=== PATIENT | female | born 1970 | race Caucasian/White ===

== ENCOUNTER 2017-04-24 05:18 | Observation (INO) | payer BC ==
[2017-04-18 09:17] VITALS: BMI 33.0
--- NOTE | 2017-04-18 09:50 | PAT Medication Instructions ---
Service Date Apr 18, 2017. Current Home Medication List Erythromycin (Erythromycin), 1 TAB PO BID Gabapentin (Neurontin), 600 MG PO HS Lisinopril (Zestril), 5 MG PO QAM Meloxicam (Mobic), 15 MG PO NOON Methotrexate (Methotrexate), 4 TAB PO WEEKLY Mupirocin 2% (Bactroban 2%), 1 APPLN EXT QAM Thyroid ([place] Thyroid), 75 MG PO QAM [Folic], 800 MG PO NOON Medication Instructions For Your Scheduled Surgery -Contact your surgeon for instructions for: Meloxicam (Mobic), 15 MG PO NOON -Follow your spool sorter's instructions for: Methotrexate (Methotrexate), 4 TAB PO WEEKLY - Hold the following medications 24 hours prior to surgery: Mupirocin 2% (Bactroban 2%), 1 APPLN EXT QAM - Hold the following medications the morning of surgery: Lisinopril (Zestril), 5 MG PO QAM - Take the following medications the morning of surgery with a sip of water: Thyroid ([place] Thyroid), 75 MG PO QAM Erythromycin (Erythromycin), 1 TAB PO BID - Take the following medications as scheduled the night before surgery: Gabapentin (Neurontin), 600 MG PO HS [Folic], 800 MG PO NOON Erythromycin (Erythromycin), 1 TAB PO BID If you have any questions please call us at [phone] or [phone] or [phone]
[2017-04-18 10:28] LABS: BASO % 0.4 %; BASO ABS # 0.03 K/uL (0-0.2); EOS % 1.5 %; EOS ABS # 0.12 K/uL (0-0.5); HEMATOCRIT 43.2 % (37-47); HEMOGLOBIN 14.4 g/dL (12.0-16.0); IG# 0.04 K/uL (0.00-0.02); LYMPH ABS # 1.98 K/uL (1.2-3.4); MEAN CELL VOLUME 95.8 fL (80-100); MEAN CORPUSCULAR HEMOGLOBIN 31.9 pg (25-34); MEAN CORPUSCULAR HGB CONC 33.3 g/dl (32-36); MEAN PLATELET VOLUME 9.5 fL (7.4-10.4); MONO % 8.7 %; MONO ABS # 0.69 K/uL (0.11-0.59); NEUT % 63.9 %; NEUT ABS # 5.05 K/uL (1.4-6.5); PLATELET COUNT 351 K/uL (130-400); RED CELL DISTRIBUTION WIDTH CV 13.2 % (11.5-14.5); RED CELL DISTRIBUTION WIDTH SD 46.1 fL (36.4-46.3); WHITE BLOOD COUNT 7.91 K/uL (4.8-10.8)
[2017-04-18 10:37] LABS: PTT PATIENT 28.8 SECONDS (21.0-31.0)
--- NOTE | 2017-04-18 11:03 | DIAGNOSTIC IMAGING REPORT ---
CERVICAL SPINE 2 OR 3 VIEWS CLINICAL HISTORY: pre op. Rheumatoid arthritis. Lateral flexion, extension, neutral COMPARISON STUDY: None. FINDINGS: Lateral, flexion, extension views of the cervical spine were submitted for review. The cervical spine is visualized from C1 through the superior T1. Mild disc space narrowing and small and plate osteophytes at C4-C5 and C6-C7. Prevertebral soft tissues are within normal limits. No fractures within the cervical spine. Alignment remains intact throughout flexion and extension. C1-C2 interval is also maintained. IMPRESSION: Mild degenerative changes within the cervical spine. Alignment remains intact throughout flexion and extension. Electronically signed by: Nhan Keith M.D. 04/18/2017 11:02 AM Dictated Date/Time: 04/18/2017 11:00 AM
[2017-04-18 13:17] LABS: CALCIUM 9.2 mg/dl (8.5-10.1); CREATININE 0.69 mg/dl (0.60-1.20); POTASSIUM 4.5 mmol/L (3.5-5.1)
[2017-04-24] VITALS (8 sets, daily range): BP systolic 99–144; BP diastolic 60–85; PULSE 78–103; TEMP 36.7–37.1; O2SAT 91–97; Ht 167.6 cm; Wt 95.8 kg
[~2017-04-24] VITALS: Ht 167.6 cm; Wt 95.8 kg
[~2017-04-24 05:18] MED LIST: BCTCR/30 EXT; ERYTTAB PO; FOLIC PO; GABA-113 PO; LISI-729 PO; MELO7.5T5 PO; METH2.5T PO; THY/30 PO
[2017-04-24] MEDS ORDERED: LACTATED RINGER'S 1000ML 1,000 ML IV SCH ×2 (06:00→06:49)
[2017-04-24] MEDS ORDERED: CEFAZOLIN 2000MG IV PUSH 15 ML IV SCH (06:00)
[2017-04-24] MEDS ORDERED: MIDAZOLAM HCL 1 MG/ML 2ML VIAL ONE (06:31)
[2017-04-24] MEDS ORDERED: FENTANYL CITRATE INJ 50 MCG/1 ML 2 ML VIAL ONE (06:31)
[2017-04-24] MEDS ORDERED: LIDOCAINE HCL 2% 2 ML VIAL (20MG/ML) ONE ×2 (06:32)
[2017-04-24] MEDS ORDERED: PROPOFOL IV EMULSION 10 MG/ML 20 ML VIAL IV ONE (06:32)
[2017-04-24] MEDS ORDERED: DEXAMETHASONE SOD INJ 4 MG/ML VIAL ONE ×2 (06:32→07:45)
[2017-04-24] MEDS ORDERED: PHENYLEPHRINE HCL INJ 10 MG/ML VIAL ONE (06:32)
[2017-04-24] MEDS ORDERED: SUCCINYLCHOLINE CHLORIDE 20 MG/ML 10 ML VIAL IV ONE (06:32)
[2017-04-24] MEDS ORDERED: ONDANSETRON INJ 2 MG/ML 2 ML VIAL ONE (06:32)
[2017-04-24] MEDS ORDERED: SCOPOLAMINE 1.5 MG TDSY TD ONE (06:47)
[2017-04-24] MEDS ORDERED: PROMETHAZINE HCL INJ 25 MG/ML 1 ML VIAL IV STA (06:49)
[2017-04-24] MEDS ORDERED: ACETAMINOPHEN 1000 MG/100 ML IV IV ONE (06:53)
[2017-04-24] MEDS ORDERED: BUPIVACAINE 0.25% 30 ML VIAL ONE (06:53)
[2017-04-24] MEDS ORDERED: LIDOCAINE/EPINEPHRINE 1% 20 ML VIAL ONE (06:53)
[2017-04-24] MEDS ORDERED: ROCURONIUM BROMIDE 10 MG/ML 5 ML VIAL IV ONE (06:59)
[2017-04-24] MEDS ORDERED: ACETAMINOPHEN IV 100 ML IV ONE (07:00)
[2017-04-24] MEDS ORDERED: PHENYLEPHRINE 100MCG/ML 5ML SYR IV PRN (07:00)
[2017-04-24] MEDS ORDERED: SCOPOLAMINE 1.5 MG TDSY TD SCH (07:00)
[2017-04-24] MEDS ORDERED: ATROPINE SULFATE 0.1 MG/ML 5ML SYR IV PRN (07:00)
[2017-04-24] MEDS ORDERED: ONDANSETRON INJ 2 MG/ML 2 ML VIAL IV PRN ×2 (07:00→11:15)
[2017-04-24] MEDS ORDERED: EpHEDrine SULFATE INJ 50 MG/ML AMP IV PRN (07:00)
--- NOTE | 2017-04-24 07:12 | History & Physical Bridge Note ---
H&P Re-Evaluation Bridge Note: I have examined the patient, reviewed the History & Physical and in the interval since the performance of the History & Physical I have noted the following changes of clinical significance: Recent sinus infection; now resolved.
[2017-04-24] MEDS ORDERED: PROMETHAZINE HCL INJ 25 MG in SODIUM CHLORIDE 0.9% 50ML 50 ML IV ONE (07:15)
[2017-04-24] MEDS ORDERED: HYDROmorphone INJ 2 MG/ML SYR/VIAL ONE ×2 (07:51→11:52)
[2017-04-24] MEDS ORDERED: SODIUM CHLORIDE 0.9% INJ 10 ML VIAL ONE (07:52)
[2017-04-24] MEDS ORDERED: GLYCOPYRROLATE INJ 0.2 MG/ML VIAL ONE (09:59)
[2017-04-24] MEDS ORDERED: NEOSTIGMINE METHYLSULFATE 5 MG/5 ML SYR ONE (09:59)
[2017-04-24] MEDS ORDERED: EpHEDrine SULFATE INJ 50 MG/ML AMP ONE (10:20)
--- NOTE | 2017-04-24 11:01 | [facility] Post Operative Brief Note ---
Immediate Operative Summary Operative Date Apr 24, 2017. Pre-Operative Diagnosis Bilateral Macromastia Post-Operative Diagnosis Bilateral Macromastia Procedure(s) Performed Bilateral Breast Reduction Surgeon Dr. Latanya Manzano Protection [employer] Surgeon(s) Eli Meade PA-C Estimated Blood Loss 25 Findings Consistent with Post-Op Diagnosis Specimens left breast 862 g right breast 870 g Drains [id number] Anesthesia Type General Complication(s) none Disposition Disposition: Recovery Room / PACU
[2017-04-24] MEDS ORDERED: MoRPHine SULFATE 2 MG/ML CARP IV PRN ×2 (11:15)
[2017-04-24] MEDS ORDERED: MoRPHine SULFATE 4 MG/ML 1 ML CARP\\VIAL IV PRN (11:15)
[2017-04-24] MEDS ORDERED: PROMETHAZINE HCL INJ 12.5 MG in SODIUM CHLORIDE 0.9% 50ML 50 ML IV PRN (11:15)
[2017-04-24] MEDS ORDERED: ACETAMINOPHEN 325 MG TAB PO PRN (11:15)
[2017-04-24] MEDS ORDERED: OXAZEPAM 10MG CAP PO PRN (11:15)
[2017-04-24] MEDS ORDERED: DiphenhydrAMINE HCL 50 MG/ML VIAL IV PRN (11:15)
[2017-04-24] MEDS ORDERED: OXYCODONE/ACETAMINOPHEN 5-325 TAB PO PRN (11:15)
[2017-04-24] MEDS: FENTANYL CITRATE INJ 50 MCG/1 ML 2 ML VIAL IV PRN ×4 (11:34→11:50)
--- NOTE | 2017-04-24 11:42 | OPERATIVE REPORT ---
DATE OF OPERATION: 04/24/2017 PREOPERATIVE DIAGNOSES: The patient is a 46-year-old female who presented to my office with complaints of back, neck and shoulder pain as well as significant arthritis related to her macromastia. After discussion, she desired to proceed with breast reduction surgery. BRIEF DESCRIPTION OF THE PROCEDURE: The risks, benefits and alternatives of the procedure were explained to the patient, who agreed and signed consent. She was identified and marked in the preoperative holding area. She was brought to the operating room, where she was positioned supine and placed under general anesthesia without incident. Surgical site was prepped and draped sterilely. A time-out procedure was performed. I began with the left side. Markings were reassessed and an 8-cm pedicle was marked. 1% lidocaine with epinephrine was used to anesthetize the planned incisions. A 38-mm cookie cutter was used to circumscribe the nipple-areolar complex. Previously marked 8-cm pedicle was incised using a 15 blade scalpel and deepithelized. I began with the medial dissection of the pedicle using electrocautery. Cautery was used to incise through dermis and breast parenchyma down to the chest wall, taking care not to undermine the pedicle during dissection. A similar procedure was undertaken on the lateral aspect of the pedicle again taking care not to undermine. Lastly, pedicle was dissected out superiorly using electrocautery and this was carried down to the chest wall as well. I then began with excision of medial breast tissue followed by lateral aspect of the breast tissue and surrounding keyhole incision. A 15 blade scalpel was used to make the inframammary fold incision and electrocautery was used to deepen the incision through dermis and breast parenchyma. Dissection was then carried superiorly to the level of the superior incision. Superior incision was then incised using a 15 blade scalpel and again dissected using electrocautery. This was undertaken laterally and then around the keyhole portion of the incision. Care was taken to leave some fat on the lateral pectoralis fascia in order to protect the T4 intercostal nerve. Hemostasis was achieved with electrocautery. Specimen was passed off in its entirety for weighing. Additional resection was undertaken predominantly laterally in order to facilitate closure of the breast and provide best shape. Total resection weight of the left breast was 862 grams. The wound was irrigated with saline. Hemostasis was achieved with electrocautery. 0.25% Marcaine plain was used to anesthetize the incisions as well as the pectoralis fascia. A 15-Syriac Norberto drain was brought out through a separate stab incision. The nipple-areolar complex was brought into the keyhole using 2-0 Vicryl deep dermal suture. The wound was closed first in a lateral to mid breast direction and then medial to mid breast direction using 2-0 Vicryl deep dermal sutures. The vertical limb was approximated using 2-0 Vicryl deep dermals. The nipple areolar complex was inset using 2-0 Vicryl deep dermal sutures. Next, the superficial dermal layer was closed using 2-0 PDO running Quill suture along the inframammary fold and 3-0 PDS interrupted dermal sutures along the vertical limb and nipple areolar complex. Lastly, 3-0 Monocryl running subcuticular suture was placed. A similar procedure was undertaken on the right side with maximal excision weight of 870 grams. Breasts were symmetric and nipple areolar complexes were viable bilaterally following wound closure. Dermabond Prineo was applied along the inframammary fold and vertical limb incisions and Dermabond was placed around the nipple areolar complex. Dry dressings and a surgical bra were placed. The patient was awakened and transferred to recovery in satisfactory condition. Eli Meade PA-C was present and scrubbed throughout the entire procedure and was instrumental in providing retraction during dissection of the pedicle and assisting in simultaneous wound closure. I attest to the content of the Intraoperative Record and any orders documented therein. Any exception s are noted below.
[2017-04-24] MEDS: HYDROmorphone INJ 1 MG/ML SYR IV PRN ×2 (12:04→12:09)
--- NOTE | 2017-04-24 12:28 | Anesthesiology Progress Note ---
Anesthesia Post Op Note Date & Time Apr 24, 2017 at 12:28 Vital Signs Pain Intensity: 6 Vital Signs Past 12 Hours Date Time Temp Pulse Resp B/P (MAP) Pulse Ox O2 Delivery O2 Flow Rate FiO2 04/24/17 12:15 36.2 16 111/72 99 Nasal Cannula 2 04/24/17 12:05 79 16 121/71 99 Nasal Cannula 2 04/24/17 11:55 91 16 124/82 100 Nasal Cannula 2 04/24/17 11:45 83 16 128/82 92 Nasal Cannula 2 04/24/17 11:35 89 16 133/91 98 Oxymask 10 04/24/17 11:25 91 16 128/80 100 Oxymask 10 04/24/17 11:17 36.5 87 16 116/76 100 Oxymask 10 04/24/17 05:56 37.1 78 18 144/85 (104) 97 Room Air Notes Mental Status: alert / awake / arousable, participated in evaluation Pt Amnestic to Procedure: Yes Nausea / Vomiting: adequately controlled Pain: adequately controlled Airway Patency, RR, SpO2: stable & adequate BP & HR: stable & adequate Hydration State: stable & adequate Anesthetic Complications: no major complications apparent Pt awake, doing well, no complaints. VSS.
[2017-04-24] MEDS ORDERED: FoLIC ACID TAB 400 MCG TAB PO SCH (14:15)
[2017-04-24] MEDS: OXYCODONE/ACETAMINOPHEN 5-325 TAB PO PRN ×3 (14:19→23:01)
[2017-04-24] MEDS: CHECK SCOPOLAMINE PATCH PLACEMENT SCH ×3 (14:20→23:25)
[2017-04-24] MEDS: CEFAZOLIN IV 2,000 MG in SYRINGE 0 ML IV SCH ×2 (14:43→22:24)
[2017-04-24] MEDS: LACTATED RINGER'S 1000ML 1,000 ML IV SCH (14:43)
[2017-04-24] MEDS ORDERED: IV FLUIDS COMPLETED PRN (16:30)
[2017-04-24] MEDS ORDERED: GABAPENTIN 300 MG CAP PO SCH (21:00)
[2017-04-25] MEDS: LACTATED RINGER'S 1000ML 1,000 ML IV SCH (01:21)
[2017-04-25] MEDS: OXYCODONE/ACETAMINOPHEN 5-325 TAB PO PRN (03:39)
[2017-04-25 03:44] VITALS: BP 100/64; PULSE 79; TEMP 36.8; O2SAT 92
[2017-04-25] MEDS ORDERED: NURSING DECISION MEDICATION ORDER SCH (05:00)
[2017-04-25] MEDS ORDERED: COUGH DROP (SUGAR FREE) LOZ 24 LOZ/1 BOX LOZ PRN (05:00)
[2017-04-25] MEDS: CHECK SCOPOLAMINE PATCH PLACEMENT SCH (07:35)
[2017-04-25 07:55] VITALS: BP 109/67; PULSE 72; TEMP 36.5; O2SAT 93
--- NOTE | 2017-04-25 08:14 | Surgery Progress Note ---
Surgery Progress Note Date of Service Apr 25, 2017. Subjective Post OP Day: 1 + feeling well, + ambulating, + pain controlled, No complaints Objective Vital Signs: Date Time Temp Pulse Resp B/P (MAP) Pulse Ox O2 Delivery O2 Flow Rate FiO2 04/25/17 07:55 36.5 72 16 109/67 (81) 93 Room Air 04/25/17 07:54 Room Air 04/25/17 03:44 36.8 79 16 100/64 (76) 92 Room Air 04/24/17 23:25 Room Air 04/24/17 22:56 37.0 79 16 99/62 (74) 91 Room Air 04/24/17 19:28 36.8 98 18 109/60 (76) 91 Room Air 04/24/17 15:48 36.9 94 18 109/68 (82) 93 Nasal Cannula 1.0 04/24/17 15:30 Nasal Cannula 1.0 04/24/17 14:52 36.9 93 16 107/71 (83) 96 2.0 04/24/17 13:45 103 16 112/73 (86) 96 2.0 04/24/17 13:13 96 16 109/76 (87) 97 2.0 04/24/17 12:45 96 Nasal Cannula 2.0 04/24/17 12:45 36.7 93 16 118/75 (89) 96 2.0 04/24/17 12:45 96 Nasal Cannula 2.0 04/24/17 12:25 36.2 90 16 127/81 99 Nasal Cannula 2 04/24/17 12:15 36.2 16 111/72 99 Nasal Cannula 2 04/24/17 12:05 79 16 121/71 99 Nasal Cannula 2 04/24/17 11:55 91 16 124/82 100 Nasal Cannula 2 04/24/17 11:45 83 16 128/82 92 Nasal Cannula 2 04/24/17 11:35 89 16 133/91 98 Oxymask 10 04/24/17 11:25 91 16 128/80 100 Oxymask 10 04/24/17 11:17 36.5 87 16 116/76 100 Oxymask 10 Physical Exam: Norberto drainage (10cc) General Appearance: WD/WN, no apparent distress Incision(s): clean, dry, intact, no erythema, findings (nipples warm, with sensation bilaterally ) Assessment & Plan s/p bilateral breast reduction 1. drains removed, d/c home today
--- NOTE | 2017-04-25 08:16 | Discharge Instructions ---
Discharge Instructions Date of Service Apr 25, 2017. Admission Reason for Admission: Bilateral Symptomatic Macromastia Discharge Discharge Diagnosis / Problem: breast hypertrophy Discharge Goals Goal(s): Decrease discomfort, Improve function Activity Recommendations Activity Limitations: per Instructions/Follow-up section ACTIVITY RECOMMENDATIONS: __Normal activities _x_No bending, lifting or straining __No driving __Driving allowed when you are off pain medications _x_Walking permitted __You should have help at home for ___ days DRESSINGS: __No dressings required _x_Keep dressings dry/in place until first office visit __Remove dressings ___ and leave dressings off __Apply ice ___ days __Remove dressings and reapply garment __Apply antibiotic ointment (Bacitracin, Neosporin, etc) to wounds 3-4 times/ day for 10 days BATHING: _x_Keep dressings dry _x_Sponge bathing permitted __Showering permitted _x_No swimming, hot tubs or soaking in a tub MEDICATIONS: Resume previous medications unless instructed otherwise by your surgeon. _x_Do not use aspirin, Motrin, Advil or Ibuprofen as these may promote bleeding. Please use Tylenol. _x_Prescription(s) provided: pain medication provided at your last office visit OTHER INSTRUCTIONS: __Record drain output 2-3 times per day SPECIAL CARE INSTRUCTIONS: * It is normal to have a mild fever after surgery. If your temperature is higher than 101.5 degrees F, please call the office at [phone]. * Constipation is a typical side effect of pain medication. An over-the- counter stool softener will help relieve this. * Leaking around surgical drains may occur and should not cause concern. Sometimes these drains become clogged. If this happens, remove the bulb and milk the clot out of the tube, then replace the bulb. * Drainage from wounds after liposuction is normal and should be expected. Garments will become soiled. You should protect furniture and bedding. This drainage should mostly subside within 2-3 days. Leave garments in place unless instructed to remove them. * If you have unusual drainage from a wound or are concerned you have an infection or have any questions or concerns, please call the office at [phone]. FOLLOW UP VISIT: If not already scheduled, please call the office, , when you return home after surgery to schedule an appointment to be seen in __1_ days. . Current Hospital Diet Patient's current hospital diet: Regular Diet Discharge Diet Recommended Diet: Regular Diet Procedures Procedures Performed: Bilateral Breast Reduction Pending Studies Studies pending at discharge: yes List of pending studies: pathology Medical Emergencies . Who to Call and When: Medical Emergencies: If at any time you feel your situation is an emergency, please call 911 immediately. . Non-Emergent Contact Non-Emergency issues call your: Primary Care Provider, Surgeon . "Provider Documentation" section prepared by Eli Meade. [place] Drug Monitoring Program Search Results: no issues identified
[2017-04-25] MEDS ORDERED: MUPIROCIN CALCIUM CREAM 2% 15 GM TUBE EXT SCH (09:00)
[2017-04-25] MEDS ORDERED: MULTIVITAMIN TAB PO SCH (09:00)
[2017-04-25] MEDS ORDERED: LISINOPRIL 5 MG TAB PO SCH (09:00)
[2017-04-25] MEDS ORDERED: ARMOUR THYROID 30 MG TAB PO SCH (09:00)
[2017-04-25] MEDS ORDERED: ENOXAPARIN 40 MG/0.4 ML SYR SQ SCH (09:00)
[2017-04-25 09:35] VITALS: BP 109/67; PULSE 72; TEMP 36.5; O2SAT 93
--- NOTE | 2017-04-25 09:48 | Anesthesiology Progress Note ---
Anesthesia Post Op Note Date & Time Apr 25, 2017 at 09:48 Vital Signs Vital Signs Past 12 Hours Date Time Temp Pulse Resp B/P (MAP) Pulse Ox O2 Delivery O2 Flow Rate FiO2 04/25/17 09:35 36.5 72 16 93 Room Air 04/25/17 07:55 36.5 72 16 109/67 (81) 93 Room Air 04/25/17 07:54 Room Air 04/25/17 03:44 36.8 79 16 100/64 (76) 92 Room Air 04/24/17 23:25 Room Air 04/24/17 22:56 37.0 79 16 99/62 (74) 91 Room Air Notes Mental Status: alert / awake / arousable, participated in evaluation Pt Amnestic to Procedure: Yes Nausea / Vomiting: adequately controlled Pain: adequately controlled Airway Patency, RR, SpO2: stable & adequate BP & HR: stable & adequate Hydration State: stable & adequate Anesthetic Complications: no major complications apparent
--- NOTE | 2017-04-25 11:04 | Discharge Summary ---
Discharge Summary Date of Service Apr 25, 2017. Admission Date/Reason Apr 24, 2017 at 11:16 Bilateral Symptomatic Macromastia. Discharge Date/Disposition Apr 25, 2017 Home Diagnosis Principal Diagnosis: bilateral macromastia Procedure(s) Performed bilateral breast reduction Medication Reconciliation Continued Medications: Erythromycin (Erythromycin) 500 Mg Tab 1 TAB PO BID for 10 Days, #20 TAB Gabapentin (Neurontin) 300 Mg Cap 600 MG PO HS, CAP Lisinopril (Zestril) 5 Mg Tab 5 MG PO QAM, TAB Methotrexate (Methotrexate) 2.5 Mg Tab 4 TAB PO WEEKLY, TAB SUNDAYS Mupirocin 2% (Bactroban 2%) 30 Gm Cr 1 APPLN EXT QAM, TUBE PUTS IN SALINE RINSE THRU NOSE Thyroid ([place] Thyroid) 30 Mg Tab 75 MG PO QAM for 90 Days, #225 TAB 3 Refills BRAND SPECIFIC-CHECKED WITH PHARMACIST [facility] HAS IN STOCK [Folic] () 800 MG PO NOON Discontinued Medications: Meloxicam (Mobic) 7.5 Mg Tab 15 MG PO NOON, TAB Admission Physical Exam As per Admitting History & Physical. Hospital Course Patient presented to same day surgery with a history symptomatic macromastia. She was taken to the OR and underwent bilateral breast reduction. There were no intraoperative complications. She was taken to recovery and transferred to med/surg. On POD#1, her pain was controlled. Her drains had about 10cc of serosanguineous output. They were removed. On exam, her incisions were clean, dry, intact, nipples pink with sensation bilaterally. She was discharged home with instructions to follow-up in the office tomorrow. Discharge Instructions Please refer to the electronic Patient Visit Report (Discharge Instructions) for additional information.
== END 2017-04-25 10:14 | disposition home or self-care (01) ==
LOC: C.ACU 05:18 → C.MSW 11:16 → ENRESERV 11:34
PROVIDERS: ADMIT Plastic Surgery; ATTEND Plastic Surgery
DX: N62 Hypertrophy of breast (principal); N60.11 Diffuse cystic mastopathy of right breast; N60.12 Diffuse cystic mastopathy of left breast; I10 Essential (primary) hypertension; M06.9 Rheumatoid arthritis, unspecified; E03.9 Hypothyroidism, unspecified; E66.9 Obesity, unspecified; F32.9 Major depressive disorder, single episode, unspecified; E04.2 Nontoxic multinodular goiter; M19.90 Unspecified osteoarthritis, unspecified site; Z90.710 Acquired absence of both cervix and uterus; Z82.49 Family history of ischemic heart disease and other diseases of the circulatory system; Z82.3 Family history of stroke

== ENCOUNTER 2018-03-01 08:38 | Inpatient (IN) ==
[2018-03-01] MEDS ORDERED: ONDANSETRON INJ 2 MG/ML 2 ML VIAL IV PRN (10:23)
[2018-03-01] MEDS ORDERED: POLYETHYLENE (MIRALAX) 17 GM PACK PO PRN (10:23)
[2018-03-01] MEDS ORDERED: ACETAMINOPHEN 325 MG TAB PO PRN (10:23)
[2018-03-01] MEDS ORDERED: ZOLPIDEM TARTRATE 5 MG TAB PO PRN (10:23)
[2018-03-01] MEDS ORDERED: ALUMINUM/MAGNESIUM SUSP 30 ML UDC PO PRN (10:23)
[2018-03-01] MEDS ORDERED: MAGNESIUM HYDROXIDE SUSP 30 ML UDC PO PRN (10:23)
[2018-03-01] MEDS: OXYCODONE/ACETAMINOPHEN 5mg/325mg TAB PO PRN ×3 (11:05→20:03)
--- NOTE | 2018-03-01 11:56 | History & Physical Report ---
Date of Service March 01, 2018 Assessment & Plan (1) Ureteral calculus: 47 y/o F Hx hypothyroidism, HTN, RA. Pt developed urinary hesitancy one day ago. She then developed L flank and lower abdominal pain early AM. The pain became severe and she proceeded to [facility] for evaluation. A CT abdomen was obtained revealing a 4mm obstructing stone at the UV junction on the L. She was transferred to [facility] as there is no urology service at [facility]. The pt does not report fevers or rigors. Her pain persists at the time of admission. Labs from [facility] are unremarkable. A UA displays bacteruria only. 1) Obstructive calculus - We will provide analgesics, IVF, Flomax. Judging by size and location, the stone may pass without intervention. She will be assessed by urology for a decision on intervention. It is not clear if she has a UTI presently. As she is somewhat immunocompromised and hospitalized with ureteral obstruction, We will continue Levaquin which was started at [facility]. 2) Hypothyroidism - cont [place] Thyroid 3) HTN - Lisinopril can be continued provided she will not undergo a procedure 4) RA - meds can be safely held for a short period due to potential infection. Full code - SCDs Total time for this admit including review of Labs, Meds, imaging, records, discussion with pt and review of records from [facility] - 37 min History of Present Illness Chief Complaint: L flank pain, urinary hesitancy Primary Care Provider: Ramiro Humphrey MD 47 y/o F Hx hypothyroidism, HTN, RA. Pt developed urinary hesitancy one day ago. She then developed L flank and lower abdominal pain early AM. The pain became severe and she proceeded to [facility] for evaluation. A CT abdomen was obtained revealing a 4mm obstructing stone at the UV junction on the L. She was transferred to [facility] as there is no urology service at [facility]. The pt does not report fevers or rigors. Her pain persists at the time of admission. Labs from [facility] are unremarkable. A UA displays bacteruria only. 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 drinks Family: Mother with history of CAD/NH Father following CVA Allergies Allergy/AdvReac Type Severity Reaction Status Date / Time No Known Allergies Allergy Unverified 04/24/17 05:50 Home Medications Home Medications Medication Instructions Recorded Confirmed Type ERYTHROMYCIN 1 tab PO BID 10 Days #20 tab 04/18/17 History FOLIC 800 mg PO NOON #0 04/18/17 History Gabapentin (Neurontin) 600 mg PO HS #0 cap 04/18/17 History Lisinopril (Zestril) 5 mg PO QAM #0 tab 04/18/17 History MUPIROCIN 2% (Bactroban 2%) 1 applic EXT QAM #0 tube 04/18/17 History Methotrexate 4 tab PO WEEKLY #0 tab 04/18/17 History THYROID ([place] THYROID) 75 mg PO QAM 90 Days #225 tab 04/18/17 History Past Med/Surg History Social History Current Living Situation: Spouse Other Information That Helps Us Care for You: No Feels Safe at Home: Yes Smoking Status: Never smoker Do You Dip or Chew Tobacco: No Hx Alcohol Use: No Hx Substance Use: No Beliefs That Will Affect Care: None Preferred Language: Mohawk Communication Ability: Effective Igniter Assembler Required: No Review of Systems Gen: Denies fevers, night sweats, rigors, fatigue, malaise, weight loss/gain ENT: Denies congestion, throat pain, hearing loss Eyes: Denies acute visual changes CV: Denies CP, palpitations Pulmonary: Denies SOB, cough, wheezing GI: LLQ pain UG: L flak pain, urinary hesitancy Neuro: Denies acute or unilateral weakness, acute gait impairment, headache or acute visual changes Musculoskeletal: Denies joint pain, inflammation Endocrine: Denies polydipsia, polyuria Skin: Denies acute rashe or ulcers Physical Exam 2 Vital Signs (Past 24 Hours): Last Vital Signs Temp 36.9 C 03/01/18 10:11 Pulse 84 03/01/18 10:11 Resp 20 03/01/18 10:11 BP 127/71 03/01/18 10:11 Pulse Ox 97 03/01/18 10:11 Physical Exam: General: AAO x 3, no distress ENT: No erythema or exudates, no thrush Eyes: OMERO, EOMI Head and neck: Normocephalic, atraumatic, No JVD, neck is supple. Chest/heart: Nontender, S1,2, RRR, no murmurs, no gallops Lungs: CTAB, no wheezing or crackles Abdomen: LLQ mildly tender Neuro: AAO x 3, speech is clear, no unilateral weakness or loss of sensation, coordination intact Musculoskeletal: No joint inflammation, muscle tenderness, FROM Skin: No acute rashes or ulcers Extremities: No clubbing, cyanosis, edema
[2018-03-01] MEDS ORDERED: PHENAZOPYRIDINE HCL 200 MG TAB PO PRN (12:23)
[2018-03-01] MEDS ORDERED: LEVOFLOXACIN/D5W 500 MG/100 ML BAG IV STA (12:23)
--- NOTE | 2018-03-01 12:26 | Urology Consultation ---
Date of Consultation March 01, 2018 Assessment & Plan (1) Ureteral calculus: A/P 47 yo female with L distal 4 mm ureteral stone. Findings reviewed with patient. She has actually done a commendable job of progression with her stone without home pain medication. Her symptoms seem improved and on CT imaging her stone seems of the verge of passage. Will provide a diet, allow patient to attempt expulsive therapy with pain meds while admitted. NPO after midnight. If her pain is improved and controlled on oral pain medication she should be able to continue to try to pass her stone at home. If she passes her stone she will be stable for DC from a perspective with outpatient follow-up. If her pain remains intractable and requiring IV analgesics, will consider intervention with ureteroscopy and stone removal tomorrow. Thank you for allowing us to participate in this patient's acute care. Please contact our service with any questions or concerns. Present on Admission?: Yes History of Present Illness Reason for Consultation: Stone disease. Attending Physician: Toby Tolentino MD, PhD, [facility] History of Present Illness 47 yo female transferred to [facility] from [facility] due to her first stone episode. She notes she began with urinary frequency and stranguria yesterday, progressing to severe LLQ pain at around 4 AM. She denies hematuria or stone passage, + emesis x 3. Her is in the room with her today. She underwent CT scan at outside facility, images on PACS, reviewed, report not available. This shows mild to moderate L hydro down to the level of a 4 mm UVJ stone, into the bladder. She reports with the medication provided at [facility] she is much more comfortable - per nursing she has only received Tylenol at [facility]. consult requested for assistance with her care. Allergies Allergy/AdvReac Type Severity Reaction Status Date / Time No Known Allergies Allergy Unverified 04/24/17 05:50 Home Medications Home Medications Medication Instructions Recorded Confirmed Type ERYTHROMYCIN 1 tab PO BID 10 Days #20 tab 04/18/17 History FOLIC 800 mg PO NOON #0 04/18/17 History Gabapentin (Neurontin) 600 mg PO HS #0 cap 04/18/17 History Lisinopril (Zestril) 5 mg PO QAM #0 tab 04/18/17 History MUPIROCIN 2% (Bactroban 2%) 1 applic EXT QAM #0 tube 04/18/17 History Methotrexate 4 tab PO WEEKLY #0 tab 04/18/17 History THYROID (ARMOUR THYROID) 75 mg PO QAM 90 Days #225 tab 04/18/17 History Patient History Medical History delivery delivered Colic, ureteral Depression H/O: hysterectomy Isaak's thyroiditis Osteoarthritis Ureteral stone with hydronephrosis Surgical History Status post breast reduction Social History Current Living Situation: Spouse Other Information That Helps Us Care for You: No Feels Safe at Home: Yes Smoking Status: Never smoker Do You Dip or Chew Tobacco: No Hx Alcohol Use: No Hx Substance Use: No Beliefs That Will Affect Care: None Preferred Language: Citizen Of [place] Communication Ability: Effective Freight Service Inspector Required: No Review of Systems Constitutional: no fever, no chills and no sweats Eyes: no blind spots and no discharge Ear, Nose, Mouth, Throat: no ear pain and no tinnitus Respiratory: no hemoptysis Cardiovascular: no chest pain Gastrointestinal: + abdominal pain, + nausea and + vomiting; no heartburn Genitourinary (Female): + urinary frequency and + urinary hesitancy Musculoskeletal: + back pain Neurologic: no paralysis and no numbness Psychiatric: no hopelessness Endocrine: + fatigue Allergy / Immunological: no tongue swelling Physical Exam 2 Vital Signs (Past 24 Hours): Last Vital Signs Temp 36.9 C 03/01/18 10:11 Pulse 84 03/01/18 10:11 Resp 20 03/01/18 10:11 BP 127/71 03/01/18 10:11 Pulse Ox 97 03/01/18 10:11 Constitutional: + acute distress and + obese ENMT: Ears: no hearing impairment and no external ear abnormality Neck: trachea midline; no anterior neck swelling Respiratory: normal respiratory effort; no respiratory distress Cardiovascular: Vessels: radial pulses present Gastrointestinal (Abdomen): Inspection/Auscultation: abdomen not distended Percussion/Palpation: abdomen soft; abdomen nontender and no guarding Skin: normal turgor Neurologic: awake; not confused and not obtunded Psychiatric: Orientation: oriented x 3 Lymphatic: no lymphadenopathy
[2018-03-01 12:59] LABS: Creatinine Clr Calc Pharmacy 96.8 ml/min; Est GFR (African American) 98.8; Est GFR (Non-African American) 85.3
[2018-03-01] MEDS: TAMSULOSIN HCL 0.4 MG CAP PO SCH (13:23)
[2018-03-01] MEDS: D5W AND LACTATED RINGERS 1,000 ML IV SCH (13:26)
--- NOTE | 2018-03-01 13:40 | XRay Report ---
KUB CLINICAL HISTORY: Left-sided nephrolithiasis. FINDINGS: An AP, portable, supine abdominal radiograph is correlated with abdominal CT from an [facility] performed the same day 03/01/2018. There is a nonobstructed abdominal bowel gas pattern. No evidence of intraperitoneal free air is seen on this supine image. A 4 mm calcification projects over the left vesicoureteral junction. This likely represents the obstructing kidney stone seen by CT . No additional calcifications are identified projecting over either kidney. The bony structures appe ar intact. IMPRESSION: A 4 mm calcification projects over the left vesicoureteral junction. This likely represen ts the obstructing kidney stone is seen on today's CT scan. Electronically signed by: Clemente Sauceda M.D. 03/01/2018 1:38 PM
[2018-03-02] MEDS: D5W AND LACTATED RINGERS 1,000 ML IV SCH (02:46)
--- NOTE | 2018-03-02 03:41 | Urology Progress Note ---
Date of Service March 02, 2018 Assessment & Plan (1) Ureteral calculus: A/P 47 yo female with L 4 mm distal ureteral stone. Findings reviewed with patient. She has done well since yesterday morning with pain controlled on oral pain medication. Seen her stability we will try to avoid surgical intervention and proceed with expulsive therapy at home. Will provide a diet with breakfast, patient should be stable for DC home with oral pain meds, tamsulosin, Pyridium PRN. Will arrange for outpatient f/u in 1-2 weeks with KUB to ensure progression. Patient vocalizes understanding of the treatment plan. Present on Admission?: Yes Subjective 47 yo female HD#2 with L distal ureteral stone, 4 mm in size, unchanged on KUB yesterday. Care d/w nursing staff - no stone passage noted but no need for parenteral pain medication. Patient reports she is tolerating her pain with oral pain medication, no stone passed, still feels stone in place. No other new events, NPO per orders. Constitutional: no fever and no chills Respiratory: no hemoptysis Cardiovascular: no chest pain Gastrointestinal: + abdominal pain; no nausea and no vomiting Genitourinary (Female): + urinary frequency Integumentary: no acne Neurologic: no paralysis Physical Exam 2 Vital Signs (Past 24 Hours): Last Vital Signs Temp 36.8 C 03/01/18 23:01 Pulse 66 03/01/18 23:01 Resp 16 03/01/18 23:01 BP 105/61 03/01/18 23:01 Pulse Ox 94 03/01/18 23:01 Constitutional: + acute distress and + obese ENMT: Ears: no hearing impairment and no external ear abnormality Neck: trachea midline; no anterior neck swelling Respiratory: normal respiratory effort; no respiratory distress Cardiovascular: Vessels: radial pulses present Gastrointestinal (Abdomen): Inspection/Auscultation: abdomen not distended Percussion/Palpation: abdomen soft; abdomen nontender and no guarding Skin: normal turgor Neurologic: awake; not confused and not obtunded Psychiatric: Orientation: oriented x 3 Lymphatic: no lymphadenopathy Results & Data Diagnostic Findings Laboratory Results Creatinine 0.81 mg/dl (0.6-1.2) 03/01/18 12:27 Est Cr Clr Drug Dosing 96.8 ml/min 03/01/18 12:27 Est GFR ( Amer) 98.8 03/01/18 12:27 Est GFR (Non-Af Amer) 85.3 03/01/18 12:27
[2018-03-02] MEDS: MoRPHine SULFATE 4 MG/ML 1 ML CARP\\VIAL IV PRN ×2 (04:44→09:18)
[2018-03-02] MEDS: OXYCODONE/ACETAMINOPHEN 5mg/325mg TAB PO PRN (04:48)
[2018-03-02] MEDS ORDERED: KETOROLAC 30 MG/ML VIAL IV STA (06:56)
[2018-03-02] MEDS: TAMSULOSIN HCL 0.4 MG CAP PO SCH (07:05)
[2018-03-02 07:27] LABS: Creatinine Clr Calc Pharmacy 83.4 ml/min; Est GFR (African American) 82.6; Est GFR (Non-African American) 71.2
--- NOTE | 2018-03-02 08:23 | XRay Report ---
KUB HISTORY: stone disease COMPARISON: KUB 03/01/2018. FINDINGS: The bowel gas pattern is unremarkable. There are no dilated loops of small bowel to suggest an obstruction. There is a punctate calcification within the left deep pelvis measuring 4 mm. This may correspond to the patient's left ureterovesical junction stone. This is not significantly changed compared the prior study. No pneumoperitoneum or pneumatosis. No renal calculi identified. IMPRESSION: No change in the 4 mm calcification within the left ureterovesical junction. Electronically signed by: Nhan Keith M.D. 03/02/2018 8:21 AM
[2018-03-02] MEDS ORDERED: MELOXICAM 7.5 MG TAB PO SCH (09:00)
[2018-03-02] MEDS ORDERED: ARMOUR THYROID 30 MG TAB PO SCH (09:00)
--- NOTE | 2018-03-02 10:23 | Anesthesiology Consultation ---
Date of Service March 02, 2018 Assessment & Plan (1) Encounter for pre-operative examination: Chart Review Chart Review: Acceptable Risk for Surgery and Patient NOT seen in Pre Admission Testing Consults Requested none ASA [id number] Proposed Anesthesia Anesthesia Type: General Risk / Benefits Reviewed With: PT / POA / Parent / Guardian, Accepts Plan and Informed Consent Obtained NPO Date Last Intake of Fluids: 03/02/18 Time Last Intake of Fluids: 09:00 Date Last Intake of Solids: 03/01/18 Time Last Intake of Solids: 18:00 History Surgery Operation Date: 03/02/18 11:15 Proposed Procedures p Laser Lithotripsy Holmium(Left) - Darryl Cosby MD Height/Weight Height: 1.68 m Weight: 93.44 kg Allergies Allergy/AdvReac Type Severity Reaction Status Date / Time No Known Allergies Allergy Unverified 04/24/17 05:50 Medications Home Medications Medication Instructions Recorded Confirmed Last Taken ERYTHROMYCIN 1 tab PO BID 10 Days #20 tab 04/18/17 10/03/17 FOLIC 800 mg PO NOON #0 04/18/17 03/01/18 02/28/18 Lisinopril (Zestril) 5 mg PO QAM #0 tab 04/18/17 03/01/18 02/28/18 MUPIROCIN 2% (Bactroban 2%) 1 applic EXT QAM #0 tube 04/18/17 07/04/17 Methotrexate 5 tab PO WEEKLY #0 tab 04/18/17 03/01/18 02/24/18 gabapentin [Neurontin] 300 mg PO HS #0 cap 04/18/17 03/01/18 02/28/18 meloxicam 15 mg PO DAILY 03/01/18 03/01/18 02/28/18 12:00 thyroid (pork) [[place] Thyroid] 75 mg PO DAILY 03/01/18 03/01/18 02/28/18 08:00 75mg topiramate [Topamax] 50 mg PO DAILY 03/01/18 03/01/18 02/28/18 topiramate [Topamax] 50 mg PO DAILY 03/01/18 03/01/18 02/28/18 22:00 phenazopyridine [Pyridium] 200 mg PO TID PRN 3 Days #7 tab 03/02/18 Unknown tamsulosin 0.4 mg PO DAILY 30 Days #30 cap 03/02/18 Unknown tramadol 50 mg PO Q6H PRN #7 tab 03/02/18 Unknown Active Medications Generic Name Dose Route Start Last Admin Trade Name Freq PRN Reason Stop Dose Admin Acetaminophen 650 mg 03/01/18 10:23 03/01/18 10:59 Tylenol PO 03/31/18 10:22 650 mg Q4H PRN Administration pain/fever Dextrose/Lactated Ringer's 1,000 mls @ 80 mls/hr 03/01/18 12:30 03/02/18 02: 46 D5w And Lactated Ringers IV 03/02/18 13:29 80 mls/hr .[id number] GÉNESIS Administration Magnesium Hydroxide 30 ml 03/01/18 10:23 03/02/18 05:13 Milk Of Magnesia PO 03/31/18 10:22 30 ml Q6H PRN Administration Constipation Meloxicam 15 mg 03/02/18 09:00 03/02/18 09:21 Mobic PO 04/01/18 08:59 Not Given QAM GÉNESIS Morphine Sulfate 3 mg 03/01/18 12:16 03/02/18 09:18 Morphine Sulfate IV 03/15/18 12:15 3 mg Q3H PRN Administration Pain Ondansetron HCl 4 mg 03/01/18 10:23 03/02/18 08:11 Zofran IV 03/31/18 10:22 4 mg Q6H PRN Administration Nausea Oxycodone/Acetaminophen 1 tab 03/01/18 12:16 03/02/18 04:48 Percocet 5mg/325mg PO 03/15/18 12:15 1 tab Q4H PRN Administration Pain Tamsulosin HCl 0.4 mg 03/01/18 13:00 03/02/18 07:05 Flomax PO 03/31/18 12:59 0.4 mg DAILY GÉNESIS Administration Thyroid 75 mg 03/02/18 09:00 03/02/18 09:19 [place] Thyroid PO 04/01/18 08:59 75 mg QAM GÉNESIS Administration Past Medical History Medical History Colic, ureteral Depression Isaak's thyroiditis Hypertension Hypothyroidism Migraine Osteoarthritis Rheumatoid arthritis Ureteral stone with hydronephrosis Past Surgical History Surgical History delivery delivered H/O sinus surgery H/O: hysterectomy S/P hysterectomy Partial hysterectomy with right oophorectomy Status post breast reduction Past Anesthesia History No Hx of Anesthesia Complications and No Family Hx of Anesthesia Complications History of PONV Yes Motion Sickness Screening History of Motion Sickness: No Social History Smoking Status: Never smoker Do You Dip or Chew Tobacco: No Hx Alcohol Use: No Hx Substance Use: No Exercise / Class Metabolic Activity II 4-5 Yardwork/Stairs/Walk up hill Physical Exam Vital Signs Last Vital Signs Temp 36.8 C 03/02/18 07:47 Pulse 82 03/02/18 07:47 Resp 18 03/02/18 07:47 BP 125/76 03/02/18 07:47 Pulse Ox 95 03/02/18 07:47 ENMT Mouth: no TMJ abnormality and no TMJ clicking Thyromental Distance: < 3.5 Finger Breadths Mallampati Class: III Neck normal visual inspection; neck extension not limited Respiratory Auscultation: lungs clear to auscultation bilaterally Cardiovascular Rate/Rhythm: regular rate Psychiatric Orientation: alert and oriented x 3 Testing Electrocardiogram Date: 03/02/18 Findings: + NSR @ (82) Laboratory Results 03/02/18 06:13
--- NOTE | 2018-03-02 10:26 | Urology Progress Note ---
Date of Service March 02, 2018 Physical Exam 2 Vital Signs (Past 24 Hours): Last Vital Signs Temp 36.8 C 03/02/18 07:47 Pulse 82 03/02/18 07:47 Resp 18 03/02/18 07:47 BP 125/76 03/02/18 07:47 Pulse Ox 95 03/02/18 07:47
[2018-03-02] MEDS ORDERED: ONDANSETRON INJ 2 MG/ML 2 ML VIAL IV PRN (11:08)
[2018-03-02] MEDS ORDERED: fentaNYL citrate 100 MCG/2 ML VIAL IV PRN (11:08)
[2018-03-02] MEDS ORDERED: ATROPINE SULFATE 0.1 MG/ML 10ML SYR IV PRN (11:08)
[2018-03-02] MEDS ORDERED: ePHEDrine sulfate 50 MG/ML AMP IV PRN (11:08)
[2018-03-02] MEDS ORDERED: PROMETHAZINE HCL 12.5 MG in SODIUM CHLORIDE 0.9% 50 ML IV PRN (11:08)
[2018-03-02] MEDS ORDERED: PHENYLEPHRINE 100MCG/ML 5ML SYR IV PRN (11:08)
[2018-03-02] MEDS ORDERED: HYDROmorphone INJ 1 MG/ML SYRINGE IV PRN (11:08)
[2018-03-02] MEDS ORDERED: fentaNYL citrate 100 MCG/2 ML VIAL ONE (11:11)
[2018-03-02] MEDS ORDERED: MIDAZOLAM HCL 1 MG/ML 2ML VIAL ONE (11:11)
[2018-03-02] MEDS ORDERED: LIDOCAINE HCL 2% 2 ML VIAL/AMP(20MG/ML) INFIL ONE (11:12)
[2018-03-02] MEDS ORDERED: PROPOFOL IV EMULSION 10 MG/ML 20 ML VIAL IV ONE (11:12)
[2018-03-02] MEDS ORDERED: SUCCINYLCHOLINE CHLORIDE 20 MG/ML 10 ML VIAL ONE (11:17)
[2018-03-02] MEDS ORDERED: ROCURONIUM BROMIDE 10 MG/ML 5 ML VIAL ONE (11:17)
[2018-03-02] MEDS ORDERED: IOTHALAMATE MEGLUMINE II 17.2% 250 ML VIAL ONE (11:19)
[2018-03-02] MEDS ORDERED: SCOPOLAMINE 1.5 MG TDSY TD ONE (11:20)
[2018-03-02] MEDS ORDERED: SCOPOLAMINE 1.5 MG TDSY ONE (11:24)
[2018-03-02] MEDS ORDERED: PROMETHAZINE HCL INJ 25 MG/ML 1 ML VIAL ONE (11:31)
--- NOTE | 2018-03-02 11:38 | Operative Report ---
Post Operative Report Pre & Post Diagnosis Operation Date: 03/02/18 11:15 Preoperative diagnosis: Left 4 mm distal ureteral stone with intractable colic, failed expulsive therapy. Postoperative diagnosis: Same. Procedure: Cystoscopy, left retrograde pyelography, left semirigid ureteroscopy with basket stone extraction and ureteral stent placement. Surgeon: Dr. Darryl Cosby. Care Center Manager: None. Drains left in place: 6 Italian, 24 cm loop stent in good position on fluoroscopy. Estimated blood loss: minimal. Procedure Operation Date: 03/02/18 11:15 Brief history: Patient is a pleasant 47-year-old female who was admitted yesterday with intractable left distal ureteral colic and pain. She was provided 24 hours to attempt to pass her stone and improve her symptoms but unfortunately decompensated this morning with recurrent nausea, vomiting and colic responsive only to parenteral pain medication. After discussion of various forms of management we have decided upon endoscopic intervention to manage her disease. Please see urology consult and progress notes for further details. Procedure: Patient was properly identified and brought into the operative suite after identification of appropriate consent in the chart. General anesthesia with endotracheal intubation due to history of nausea and emesis was provided patient was prepped and draped in the standard fashion for this procedure. Full timeout procedure was followed. A 22 Italian rigid cystoscope was passed into the bladder and the bladder was surveyed in its entirety including 30 and 70 degree lenses yesterday no intravesical lesions, papillary masses or calculi. Ureteral orifices were visualized bilaterally with a normal right ureteral orifice and edema and inflammation around the left ureter. This was cannulated using an open-ended catheter and gentle retrograde pyelography was performed. This demonstrated mild to moderate proximal hydroureteronephrosis. Sensor tip wire was advanced up to the level of the left kidney and kept until the end of the case as a safety wire. Bladder was drained and cystoscope was removed. Semirigid ureteroscope was introduced and advanced into the left distal ureter until the patient's stone was encountered. Seen the relatively small size of the stones was able to be grasped with a 0 tip basket and removed from the ureter without trauma or difficulties. This was sent for chemical analysis. Ureteroscope was reintroduced up to the level of the proximal ureter that difficulties or resistance with no evidence of ureteral injury or residual stone. No mucosal abnormalities were appreciated. Complete exit ureteroscopy was performed confirming the same. Cystoscope was backloaded over the safety wire and a 6 Italian 24 cm loop stent was advanced with redundant loops in the bowel and upper tract coil noted on fluoroscopic examination. Bladder was drained and cystoscope was removed. Anesthesia was reversed and patient was transferred to the recovery room in stable condition. Follow-up CARE: Patient should be stable for discharge home later today. Prescription for analgesics and short course of antibiotics should suffice. Will arrange for outpatient appointment for cystoscopy and stent removal in 1-2 weeks time. Patient is instructed to contact our service should she note any fevers, chills, nausea, vomiting or other difficulties in the postoperative period. Surgeon Darryl Cosby MD Care Center Manager None Estimated Blood Loss 0 Findings Consistent with Post-Op Diagnosis Specimens Left distal stone for chemical analysis Description of Procedure Cystoscopy, left retrograde pyelography, left semirigid ureteroscopy with basket stone extraction and ureteral stent placement. I attest to the content of the Intraoperative Record and any orders documented therein. Any exceptions are noted below.
[2018-03-02] MEDS ORDERED: DEXAMETHASONE SOD INJ 4 MG/ML VIAL ONE (11:43)
[2018-03-02] MEDS ORDERED: ONDANSETRON INJ 2 MG/ML 2 ML VIAL ONE (11:51)
[2018-03-02] MEDS ORDERED: LEVOFLOXACIN/D5W 500 MG/100 ML BAG IV SCH (12:00)
--- NOTE | 2018-03-02 12:41 | Fluoroscopy Report ---
FL retrograde includes kub HISTORY: RETROGRADE AND LEFT STENT PLACEMENT FLUOROSCOPY TIME: 33 seconds FINDINGS: 2 fluoroscopic spot images were submitted for review. Retrograde opacification of the left ureter with a filling defect within the distal ureter. This could represent a stone or gas bubbles. T his is followed by placement of a left ureteral stent. Only the proximal portion of the stent is iden tified but appears in good position. IMPRESSION: Fluoroscopy provided for left ureteral stent placement. Electronically signed by: Nhan Keith M.D. 03/02/2018 12:39 PM
--- NOTE | 2018-03-02 13:01 | Anesthesiology Progress Note ---
Date of Service March 02, 2018 Anesthesia Post Procedure Vital Signs Vital Signs: Temp Pulse Pulse Resp BP BP Pulse Ox 03/02/18 12:55 72 16 112/79 95 03/02/18 12:40 36.5 C 72 17 127/79 98 03/02/18 12:30 80 18 132/89 100 03/02/18 12:20 84 15 145/95 H 96 03/02/18 12:13 36.2 C L 92 H 16 138/85 97 03/02/18 07:47 36.8 C 82 18 125/76 95 03/01/18 23:01 36.8 C 66 16 105/61 94 03/01/18 15:01 36.7 C 66 18 102/66 93 Pain Intensity Left Flank: Pain Intensity: 7 Head: Pain Intensity: 5 Notes Mental Status: alert / awake / arousable Patient Amnestic to Procedure: Yes Nausea / Vomiting: adequately controlled Pain: adequately controlled Airway Patency, RR, SpO2: stable & adequate BP & HR: stable & adequate Hydration State: stable & adequate Anesthetic Complications: no major complications apparent
--- NOTE | 2018-03-02 15:51 | Discharge Summary ---
Date of Service March 02, 2018 Admission HPI Per Admitting Provider 47 y/o F Hx hypothyroidism, HTN, RA. Pt developed urinary hesitancy one day ago. She then developed L flank and lower abdominal pain early AM. The pain became severe and she proceeded to [facility] for evaluation. A CT abdomen was obtained revealing a 4mm obstructing stone at the UV junction on the L. She was transferred to [facility] as there is no urology service at [facility]. The pt does not report fevers or rigors. Her pain persists at the time of admission. Labs from [facility] are unremarkable. A UA displays bacteruria only. 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, rarely drinks Family: Mother with history of CAD/RI Father following CVA Principal Diagnosis no Discharge Data Allergies Allergy/AdvReac Type Severity Reaction Status Date / Time No Known Allergies Allergy Unverified 04/24/17 05:50 Consultations 03/01/18 10:23 Consult Urology Routine Procedures Performed Operation Date: 03/02/18 11:15 Actual Procedures p Cystoscopy, Left Retrograde Pyelogram, SemiRigid Ureteroscopy, Basket Stone Extraction, Ureteral Stent Placement(Left) - Darryl Cosby MD Ordered Studies 03/02/18 11:15 FL retrograde includes kub Routine Hospital Course (1) Ureteral calculus: Ureteral calculus, s/P Ureteral calculus on the left side status post ureteroscopy, basket stone extraction and stent placement by Dr. Cosby, She has been up and walk, to the restroom, no pain, has been otherwise diet, Discharge instruction and postop instruction will be per Dr. Cosby Hypothyroidism - cont [place] Thyroid HTN, continue lisinopril RA, continue meds Instruction to follow-up with urologist and PCP as instructed Subjective upon discharge, no complaint Review of Systems upon discharge Gen: Denies fevers, night sweats, rigors, fatigue, malaise, weight loss/gain ENT: Denies congestion, throat pain, hearing loss Eyes: Denies acute visual changes CV: Denies CP, palpitations Pulmonary: Denies SOB, cough, wheezing GI: no pain : No complaint no hematuria Neuro: Denies acute or unilateral weakness, acute gait impairment, headache or acute visual changes Musculoskeletal: Denies joint pain, inflammation Endocrine: Denies polydipsia, polyuria Skin: Denies acute rashe or ulcers Physical exam upon discharge General: AAO x 3, no distress ENT: No erythema or exudates, no thrush Eyes: OMERO, EOMI Head and neck: Normocephalic, atraumatic, No JVD, neck is supple. Chest/heart: Nontender, S1,2, RRR, no murmurs, no gallops Lungs: CTAB, no wheezing or crackles Abdomen: Soft nontender, bowel sounds positive Neuro: AAO x 3, speech is clear, no unilateral weakness or loss of sensation, coordination intact Musculoskeletal: No joint inflammation, muscle tenderness, FROM Skin: No acute rashes or ulcers Extremities: No clubbing, cyanosis, edema Labs upon discharge Laboratory Results - last 24 hr 03/02/18 06:13 Creatinine 0.94 Est Cr Clr Drug Dosing 83.4 Est GFR ( Amer) 82.6 Est GFR (Non-Af Amer) 71.2 Total Time Total Time Spent Total Time Spent (In Minutes): 25 Total Time Includes: Examination of the Patient, Discharge Planning, Medication Reconciliation and Communication With Other Providers Discharge Plan Discharge Items Patient Disposition: Home - Self-Care Reason For Visit: UTI, NEPH URETER STONE, KIDNEY STONE Discharge Diagnosis: Ureteral calculus on the left side status post ureteroscopy , basket stone extraction and stent placement. Condition: Fair Discharge Goals: Decrease discomfort, Diagnostic testing, Improve disease control and Improve function Activity: Resume your previous activity Lifting: Gradually increase as tolerated and No more than 25 pounds Bathing: No limitations Sexual Activity: When tolerated Exercise/Sports: Rest today and Gradually increase as tolerated Driving/Machine Use: Resume 1 day after discharge Non-emergency contact: Primary Care Provider and Urologist Call non-emergency contact if: you have any medication questions, your symptoms worsen, your pain is not controlled, your pain is worsening, your pain is unusual for you, your pain is concerning for you, you have a fever, your temperature is above 101, your wound has increased drainage and your wound pain has increased Follow-up/Referrals: Ramiro Humphrey MD [Primary Care Provider] - Diet: Heart Healthy Diet Comment: Good fluid intake. Addtl Provider Instructions: you have Ureteral calculus: You had procedure done, status post ureteroscopy, basket stone extraction and stent placement. Follow-up the introduction from Dr. Cosby for the postop will give you oral pain meds, tamsulosin, Pyridium PRN. You need to follow-up as outpatient f/u in 1-[address] Cosby (office phone [phone]) you need to follow up with your primary care physician in 1 week, - take medication as instructed, never overdose or any misuse, or take with alcohol, because misuse of medicine may cause organ damage or , call me , or your primary care physician if have questions of discharge medicaitons. - call your primary care physician, or go to local emergency room if has any fever/chill, chest pain, shortness of breathing, nausea/vomiting/abdominal pain , facial droop/slurry speech/local weakness, or if has any questions. - fall precaution - diet as instructed - you need to follow up with your subspecialist, such as Dr. Cosby Prescriptions: New phenazopyridine [Pyridium] 200 mg Tablet 200 mg PO TID PRN (Reason: pain) 3 Days Qty: 7 RF: 0 tamsulosin 0.4 mg Capsule 0.4 mg PO DAILY 30 Days Qty: 30 RF: 0 tramadol 50 mg tablet 50 mg PO Q6H PRN (Reason: pain) Qty: 7 RF: 0 Continue gabapentin [Neurontin] 300 mg Capsule 300 mg PO HS Qty: 0 RF: 0 FOLIC 800 mg PO NOON Qty: 0 RF: 0 Lisinopril (Zestril) 5 MG tablet 5 mg PO QAM Qty: 0 RF: 0 Methotrexate 2.5 MG tablet 5 tab PO WEEKLY Qty: 0 RF: 0 ERYTHROMYCIN 500 MG tablet 1 tab PO BID 10 Days Qty: 20 RF: 0 MUPIROCIN 2% (Bactroban 2%) 30 GM cream 1 applic EXT QAM Qty: 0 RF: 0 topiramate [Topamax] 50 mg Tablet 50 mg PO DAILY RF: 0 topiramate [Topamax] 50 mg Tablet 50 mg PO DAILY RF: 0 thyroid (pork) [[place] Thyroid] 60 mg Tablet 75 mg PO DAILY RF: 0 meloxicam 15 mg Tablet 15 mg PO DAILY RF: 0 Stand-Alone Forms: [facility] Discharge Orders: Discharge Order (Routine); Ordered 03/02/18 Ordered By: Toby Tolentino Admission Data Admit Date/Time: 03/01/18 10:04 Attending Provider: Toby Tolentino Admit Provider: Toby Tolentino Primary Care Provider: Ramiro Humphrey Other Providers: Darryl Cosby I. Service: Medical Other Pending Studies at Discharge: Yes Studies:: Stone analysis
[2018-03-02] MEDS ORDERED: CHECK SCOPOLAMINE PATCH PLACEMENT SCH (16:00)
[2018-03-02] MEDS ORDERED: GABAPENTIN 300 MG CAP PO SCH (21:00)
[2018-03-02] MEDS ORDERED: TOPIRAMATE 50 MG TAB PO SCH (21:00)
[2018-03-03] MEDS ORDERED: LISINOPRIL 5 MG TAB PO SCH (09:00)
[2018-03-03] MEDS ORDERED: metHOTREXate sodium 2.5 MG TAB PO SCH (09:00)
[2018-03-03] MEDS ORDERED: TOPIRAMATE 50 MG TAB PO SCH ×2 (09:00)
[2018-03-03] MEDS ORDERED: MELOXICAM 7.5 MG TAB PO SCH (09:00)
[2018-03-03] MEDS ORDERED: ARMOUR THYROID 30 MG TAB PO SCH (09:00)
[2018-03-03] MEDS ORDERED: FOLIC ACID 400 MCG TAB PO SCH (12:00)
[2018-03-10 08:45] LABS: Component 2 DNR
== END 2018-03-02 16:37 | disposition home or self-care (01) | DRG 661 ==
LOC: 3W → OBSVTOIN 10:04